=== PATIENT | male | born 1945 | race Two or more races ===

== ENCOUNTER 2018-12-03 10:59 | Inpatient (IN) | payer OTHER ==
[~2018-12-03] VITALS: Ht 172.7 cm; Wt 82.8 kg
[~2018-12-03 10:59] MED LIST: ASPI81CH49 PO; ATOR40TA52 PO; CAR3125T OR; DOCU250C3 PO; DONETAB6 PO; ENAL2.5T PO; FLUO-125 PO; GABA800T97 PO; HCTZ25T PO; INSLANTI SC; INSUPOW SUBCUT; LEVO75TA6 PO; METO25TA5 PO; MORP60TA34 PO; NITR0.4S31 SL; OMEG100078 PO; OMEP20TA44 PO; SPIR25TA8 PO; TRAZ50TA2 PO
[2018-12-03 11:35] LABS: Basophils # (auto) 0.1 uL; Basophils % (auto) 0.7 % (0.0-2.0); Eosinophils # (auto) 0 uL; Eosinophils % (auto) 0.3 % (0.0-7.0); Hematocrit 26.4 % (41.0-53.0); Hemoglobin 9.1 g/dL (13.5-17.5); Lymphocytes % (auto) 17.7 % (10.0-50.0); Mean Corpuscular Hemoglobin 30.3 pg (28.0-32.0); Mean Corpuscular Hgb Conc. 34.3 g/dL (32.0-36.0); Mean Corpuscular Volume 88.4 fL (80.0-100.0); Monocytes # (auto) 1.4 uL; Monocytes % (auto) 12.1 % (0.0-12.0); Neutrophils # (auto) 7.8 uL; Neutrophils % (auto) 69.2 % (37.0-80.0); Platelet Count (auto) 91 10^3/uL (140-450); Red Blood Cells 2.98 10^6/uL (4.5-5.90); Red Cell Distribution Width 14.1 % (11.8-14.3); White Blood Cell 11.2 10^3/uL (4.4-10.8)
[2018-12-03 11:53] LABS: Albumin 2.6 g/dL (3.4-5.0); Calcium 9.5 mg/dL (8.5-10.1); Potassium 4.1 mmol/L (3.5-5.1)
[2018-12-03 11:56] LABS: BUN/Creatinine Ratio 47.9; Bilirubin, Total 0.5 mg/dL (0.2-1.0); Total Protein 6.3 g/dL (6.4-8.2)
[2018-12-03] MEDS ORDERED: SODIUM CHLORIDE 0.9% 1,000 ML IVB ONE (12:38)
[2018-12-03 13:05] LABS: INR 1.23 (0.9-1.15); Partial Thromboplastin Time 28.2 sec (23.78-33.04)
[2018-12-03 13:08] LABS: Magnesium 1.8 mg/dL (1.6-2.6)
[2018-12-03] MEDS ORDERED: NITROGLYCERIN 0.4 MG SL TAB SL PRN (20:00)
[2018-12-03] MEDS ORDERED: MORPHINE SULF INJ 2 MG/ML SYRINGE 1ML IV PRN ×2 (20:00)
[2018-12-03] MEDS ORDERED: ONDANSETRON HCL 4 MG/2 ML VIAL IV PRN (20:00)
[2018-12-03] MEDS ORDERED: DEXTROSE (50%) 50ML SYRG IV PRN (20:00)
[2018-12-03] MEDS ORDERED: VANCOMYCIN PER PHARMACY 0 MG IV SCH (20:00)
[2018-12-03] MEDS ORDERED: PATIENTS OWN MEDICATION (Gabapentin 800 MG) PO SCH (22:00)
[2018-12-03] MEDS ORDERED: PATIENTS OWN MEDICATION (Donepezil Hydrochloride (Donepezil Hcl) 10 MG) PO SCH (22:00)
[2018-12-03] MEDS: InsuLIN REG 1unit/0.01ml Soln (100units/ml) SC SCH (22:28)
[2018-12-03] MEDS: ACCU-CHEK COMFORT CURVE STRIP VI SCH (22:28)
--- NOTE | 2018-12-03 22:56 | NUR ---
Telemetry admit from VERA DUNN Caren admitted to Telemetry unit after no SBAR received. Patient oriented to ROXANNE ARMENDARIZ, RN primary RN, unit, room, bed, and unit policies regarding patient care and visiting hours. Patient now on continuous telemetry monitoring, tele box # [id number] and telemetry reading on arrival to unit is sinus tachycardia at 107 beats oer minute. Patient weighed by bedscale and encouraged to call if they need something. All questions and concerns addressed, patient verbalized understanding. Bed in lowest locked position, side rails up x2, call light within reach, bed alarm on. Patient educated on using call light for staff assistance before getting up or out of bed, patient verbalized understanding. Skin intact, dry scabs noted to left heel under optifoam. Picture taken with wound care camera for reference. Heels floated with pillow, skin cleaned and new optifoam applied. Skin noted to be intact. Will continue to monitor for changes every hour and as needed.
[2018-12-03] MEDS ORDERED: VANCOMYCIN 1GM/250ML 250 ML IV ONE (23:00)
[2018-12-03 23:52] VITALS: BP 98/52
[2018-12-04] MEDS: ACETAMINOPHEN 500 MG TAB PO PRN ×2 (00:47→10:00)
[2018-12-04] MEDS: DOCUSATE SOD 100 MG CAP PO SCH ×3 (00:48→22:24)
[2018-12-04] MEDS: SODIUM CHLORIDE 0.9% 1,000 ML IV SCH ×4 (00:50→22:30)
--- NOTE | 2018-12-04 02:00 | NUR ---
Hospitalist Paged Patient requesting anti-anxiety medication, nothing due at this time. Patient also report 02/26 "stomach ache," requesting Tums. Hospitalist paged, awaiting call back at this time.
--- NOTE | 2018-12-04 02:48 | NUR ---
Hospitalist Returned Page Jose Leos SPORTS MEDICINE TRAINER returned page at this time. New orders received for Tums 500 mg chewable one time dose for patient's stomach discomfort and for Temazepam 15mg PO one time dose for patient's anxiety. All orders read back and verified. Will continue to monitor patient.
[2018-12-04] MEDS ORDERED: CALCIUM CARB 500 MG CHEW TAB PO ONE (03:00)
[2018-12-04] MEDS ORDERED: TEMAZEPAM 15 MG CAP PO ONE (03:00)
[2018-12-04] MEDS: LEVOFLOXACIN 750MG 150 ML IV SCH (03:07)
[2018-12-04 05:04] VITALS: BP 112/53
[2018-12-04] MEDS: GABAPENTIN 400 MG CAP PO SCH ×3 (05:19→22:24)
[2018-12-04] MEDS: FLUoxetine HCL 20 MG CAP PO SCH (05:20)
[2018-12-04] MEDS: LEVOTHYROXINE SODIUM 25 MCG TAB PO SCH (05:20)
[2018-12-04 05:46] LABS: Basophils # (auto) 0.1 uL; Eosinophils # (auto) 0.1 uL; Neutrophils # (auto) 6.9 uL; Platelet Count (auto) 86 10^3/uL (140-450)
[2018-12-04 05:48] LABS: Basophils % (auto) 0.7 % (0.0-2.0); Eosinophils % (auto) 0.6 % (0.0-7.0); Hematocrit 24.1 % (41.0-53.0); Hemoglobin 8.4 g/dL (13.5-17.5); Lymphocytes # (auto) 1.7 uL; Lymphocytes % (auto) 17.2 % (10.0-50.0); Mean Corpuscular Hemoglobin 31.2 pg (28.0-32.0); Mean Corpuscular Hgb Conc. 34.8 g/dL (32.0-36.0); Mean Corpuscular Volume 89.8 fL (80.0-100.0); Neutrophils % (auto) 71.5 % (37.0-80.0); Red Blood Cells 2.69 10^6/uL (4.5-5.90); White Blood Cell 9.6 10^3/uL (4.4-10.8)
[2018-12-04 06:07] LABS: % Iron Saturation 18.5 % (20-55)
[2018-12-04 06:13] LABS: Calcium 8.4 mg/dL (8.5-10.1); Potassium 3.7 mmol/L (3.5-5.1)
[2018-12-04 06:14] LABS: Magnesium 1.7 mg/dL (1.6-2.6)
[2018-12-04 06:15] LABS: BUN/Creatinine Ratio 48.6
[2018-12-04 06:57] LABS: Albumin 2.5 g/dL (3.4-5.0); Bilirubin, Direct 0.2 mg/dL (0-0.2)
[2018-12-04 06:59] LABS: Bilirubin, Total 0.5 mg/dL (0.2-1.0); Total Protein 6.4 g/dL (6.4-8.2)
[2018-12-04] MEDS: ACCU-CHEK COMFORT CURVE STRIP VI SCH ×4 (07:00→22:24)
[2018-12-04] MEDS ORDERED: PATIENTS OWN MEDICATION (Fluoxetine Hcl 20 MG) PO SCH (07:00)
--- NOTE | 2018-12-04 07:30 | NUR ---
Opening Shift Note Assumed care of patient, awake and alert. No S/S of distress/SOB or pain. Instructed on POC and to call for assist PRN, will continue to monitor for changes Q1hr and PRN.
[2018-12-04] MEDS: InsuLIN REG 1unit/0.01ml Soln (100units/ml) SC SCH ×4 (07:32→22:23)
--- NOTE | 2018-12-04 07:32 | NUR ---
Closing Note Patient lying in bed, eyes closed, respirations even and unlabored, appears asleep. Patient awakens to name and touch. No s/s of distress. Bed in lowest locked position, side rails up x2, call light within reach, bed alarm on. Care endorsed to dayshift RN.
[2018-12-04 09:00] VITALS: BP 107/56
[2018-12-04] MEDS: PANTOPRAZOLE 40 MG/10 ML VIAL IV SCH (10:00)
[2018-12-04] MEDS: ASPirin 81 mg TAB PO SCH (10:00)
[2018-12-04] MEDS ORDERED: PATIENTS OWN MEDICATION (Levothyroxine Sodium 1 TAB) PO SCH (10:00)
[2018-12-04] MEDS: VANCOMYCIN 1GM/250ML 250 ML IV SCH ×2 (11:34→22:22)
[2018-12-04 13:00] VITALS: BP 99/50
[2018-12-04] MEDS ORDERED: DEXTROSE (50%) 50ML SYRG IV PRN (16:15)
[2018-12-04 16:52] VITALS: BP 110/54
[2018-12-04] MEDS: TAMSULOSIN HYDROCHLORIDE 0.4 MG CAP PO SCH (17:27)
[2018-12-04 22:00] VITALS: BP 101/47
[2018-12-04] MEDS: DONEPEZIL HYDROCHLORIDE 5 MG TAB PO SCH (22:25)
[2018-12-05 06:00] VITALS: BP 90/50
[2018-12-05] MEDS: SODIUM CHLORIDE 0.9% 1,000 ML IV SCH ×3 (06:30→22:16)
[2018-12-05] MEDS: GABAPENTIN 400 MG CAP PO SCH ×3 (06:40→21:59)
[2018-12-05] MEDS: LEVOTHYROXINE SODIUM 25 MCG TAB PO SCH (06:41)
[2018-12-05] MEDS: ACCU-CHEK COMFORT CURVE STRIP VI SCH ×4 (06:42→22:15)
[2018-12-05] MEDS: InsuLIN REG 1unit/0.01ml Soln (100units/ml) SC SCH ×4 (06:42→22:02)
[2018-12-05] MEDS: FLUoxetine HCL 20 MG CAP PO SCH (06:42)
[2018-12-05] MEDS: ACETAMINOPHEN 500 MG TAB PO PRN ×2 (07:05→17:43)
--- NOTE | 2018-12-05 07:55 | NUR ---
Opening Shift Note Assumed care of patient, patient sleeping. No S/S of distress/SOB or pain. Will continue to monitor for changes Q1hr and PRN.
[2018-12-05 08:00] VITALS: BP 105/66
[2018-12-05 08:45] VITALS: BP 105/66
[2018-12-05] MEDS: DOCUSATE SOD 100 MG CAP PO SCH ×2 (10:08→21:59)
[2018-12-05] MEDS: PANTOPRAZOLE 40 MG/10 ML VIAL IV SCH (10:08)
[2018-12-05] MEDS: ASPirin 81 mg TAB PO SCH (10:08)
[2018-12-05 10:13] LABS: Albumin 2.2 g/dL (3.4-5.0); BUN/Creatinine Ratio 25.7; Calcium 7.6 mg/dL (8.5-10.1); Potassium 3.4 mmol/L (3.5-5.1)
[2018-12-05 10:16] LABS: Bilirubin, Total 0.4 mg/dL (0.2-1.0); Total Protein 5.9 g/dL (6.4-8.2)
[2018-12-05] MEDS: HYDROcodone-ACET 5/325MG TAB PO PRN ×2 (10:19→21:59)
--- NOTE | 2018-12-05 11:38 | NUR ---
assessment Per ss consult patient has had multiple falls at home, overwhelmed. 2nd ss consult unable to care for patient at home. I have left a message for patients Tesas. Waiting for return call now. Addendum: 12/07/18 at 1141 by Elisa Alva Amended: Links added.
[2018-12-05] MEDS: VANCOMYCIN 1GM/250ML 250 ML IV SCH (11:48)
[2018-12-05 12:59] VITALS: BP 90/45
[2018-12-05 17:00] VITALS: BP 101/50
[2018-12-05] MEDS: TAMSULOSIN HYDROCHLORIDE 0.4 MG CAP PO SCH (17:26)
--- NOTE | 2018-12-05 17:52 | NUR ---
IV insertion IV access obtained, via clean sterile technique by inserting 22 gauge catheter at right wrist after 1 attempt. IV secured properly. No trauma to site. Patient tolerated well.
--- NOTE | 2018-12-05 17:54 | NUR ---
IV removal IV DC'd from left forearm with clean sterile technique, catheter fully intact. Pressure dressing applied to site. Patient tolerated well.
--- NOTE | 2018-12-05 18:56 | NUR ---
END OF SHIFT PATIENT RESTING IN BED, NO S/S OF DISTRESS NOTED. INSTRUCTED PATIENT TO CALL PRN. BED IN LOWEST LOCKED POSITION, CALL LIGHT WITHIN REACH. ENDORSED CARE TO FRANKLIN MILLER.
--- NOTE | 2018-12-05 19:30 | NUR ---
Opening Shift Note Assumed care of patient, awake and alert x4. No S/S of distress/SOB or pain. Patient gets easily agitated and demands things at times. IV patent to right wrist. Instructed on POC and to call for assist PRN, will continue to monitor for changes Q1hr and PRN.
[2018-12-05] MEDS ORDERED: TEMAZEPAM 15 MG CAP PO PRN (21:00)
--- NOTE | 2018-12-05 21:00 | NUR ---
Patient requesting a sleeping pill. Called Dr. Bennett's call center and spoke with Dr. Hewitt. New orders carried out.
[2018-12-05] MEDS: DONEPEZIL HYDROCHLORIDE 5 MG TAB PO SCH (21:59)
[2018-12-05 22:00] VITALS: BP 100/47
[2018-12-05] MEDS: LEVOFLOXACIN 750MG 150 ML IV SCH ×2 (22:02)
[2018-12-06 05:00] VITALS: BP 105/56
[2018-12-06] MEDS: LEVOTHYROXINE SODIUM 25 MCG TAB PO SCH (06:09)
[2018-12-06] MEDS: GABAPENTIN 400 MG CAP PO SCH ×2 (06:09→13:28)
[2018-12-06] MEDS: InsuLIN REG 1unit/0.01ml Soln (100units/ml) SC SCH ×3 (06:10→17:00)
[2018-12-06] MEDS: ACCU-CHEK COMFORT CURVE STRIP VI SCH ×3 (06:10→17:00)
[2018-12-06] MEDS: FLUoxetine HCL 20 MG CAP PO SCH (06:10)
[2018-12-06] MEDS: SODIUM CHLORIDE 0.9% 1,000 ML IV SCH ×2 (06:10→14:02)
[2018-12-06] MEDS: ACETAMINOPHEN 500 MG TAB PO PRN (06:11)
--- NOTE | 2018-12-06 07:44 | NUR ---
Opening Shift Note Assumed care of patient, awake, alert, and oriented x4. Patient has IV in right wrist 22g running NS at 125mL/hr, patient tolerating well. Patient is on room air with no S/S of distress/SOB. Patient has optifoam to sacrum for preventative measures. Instructed on POC and to call for assist PRN, will continue to monitor for changes Q1hr and PRN. Bed in lowest locked position, call light within reach.
[2018-12-06 08:00] VITALS: BP 107/50
--- NOTE | 2018-12-06 08:57 | NUR ---
ORDER AND CLINICALS FAXED TO [facility] REQUESTING SNF PLACEMENT.
[2018-12-06 09:00] VITALS: BP 107/50
[2018-12-06] MEDS: PANTOPRAZOLE 40 MG/10 ML VIAL IV SCH (09:09)
[2018-12-06] MEDS: DOCUSATE SOD 100 MG CAP PO SCH (09:09)
[2018-12-06] MEDS: ASPirin 81 mg TAB PO SCH (09:09)
[2018-12-06] MEDS: HYDROcodone-ACET 5/325MG TAB PO PRN (10:41)
[2018-12-06 12:02] VITALS: BP 96/54
--- NOTE | 2018-12-06 12:06 | NUR ---
AT BEDSIDE DR. LAY AT BEDSIDE. PATIENT REQUESTING ANXIETY MEDICATION. PER MD, PATIENT TO GET XANAX 0.5 PO TID PRN FOR ANXIETY. ORDERS READ BACK AND VERIFIED.
[2018-12-06] MEDS: ALPRAZolam 0.5 MG TAB PO PRN ×2 (12:24→16:58)
[2018-12-06 12:41] VITALS: BP 96/54
--- NOTE | 2018-12-06 13:26 | NUR ---
PATIENT'S REQUESTING PATIENT TO GO TO [facility] IN [place] UPON DISCHARGE IF POSSIBLE. MESSAGE LEFT WITH CIRO, CASE MANAGEMENT. WAITING FOR CALL BACK.
--- NOTE | 2018-12-06 14:22 | NUR ---
PATIENT HAS BEEN ACCEPTED AT [facility] ROOM 514 BED 2. PHONE NUMBER [phone]. AUTH FOR [facility] IS
--- NOTE | 2018-12-06 14:34 | NUR ---
[facility] WILL TRANSPORT PATIENT AT 1700 TO [facility]. AUTH IS [id number]
--- NOTE | 2018-12-06 15:00 | NUR ---
AND REPORT , MARILYN, MADE AWARE OF PATIENT GOING TO [facility], ROOM 514, BED 2. REPORT GIVEN TO FRANKLIN PLUMMER AT [facility] FOR CONTINUATION OF CARE.
--- NOTE | 2018-12-06 15:40 | NUR ---
re-assessment Per consult SNF placement. Laurita social media sr strategy manager working on SNF. Addendum: 12/07/18 at 1141 by Elisa Alva Amended: Links added.
[2018-12-06 16:50] VITALS: BP 109/54
--- NOTE | 2018-12-06 17:02 | NUR ---
DISCHARGE Discharge instructions given as ordered. Encourage to follow up with PMD as instructed. All questions and concerns addressed. Patient verbalized understanding. Medication reconciliation form completed and copy given to patient. IV removed with catheter intact, pressure dressing applied. Telemetry unit returned to ICU. Patient taken to vehicle via gurney with all personal belongings, accompanied by [facility] staff. No distress noted at time of departure.
== END 2018-12-06 17:00 | DRG 638 ==
LOC: ER 10:59 → EDUNIT# 10:59 → EDBD 10:59 → TELE 19:55 → TELE-WESTW 22:55
PROVIDERS: ADMIT Nurse Practitioner Acute Care; ATTEND Internal Medicine
DX: E11.65 Type 2 diabetes mellitus with hyperglycemia (principal); I50.42 Chronic combined systolic (congestive) and diastolic (congestive) heart failure; E44.0 Moderate protein-calorie malnutrition; I13.0 Hypertensive heart and chronic kidney disease with heart failure and stage 1 through stage 4 chronic kidney disease, or unspecified chronic kidney disease; R55 Syncope and collapse; I25.10 Atherosclerotic heart disease of native coronary artery without angina pectoris; E03.9 Hypothyroidism, unspecified; E78.5 Hyperlipidemia, unspecified; G89.4 Chronic pain syndrome; J32.0 Chronic maxillary sinusitis; K21.9 Gastro-esophageal reflux disease without esophagitis; R29.6 Repeated falls; E11.42 Type 2 diabetes mellitus with diabetic polyneuropathy; F41.9 Anxiety disorder, unspecified; G47.00 Insomnia, unspecified; N18.9 Chronic kidney disease, unspecified; D50.9 Iron deficiency anemia, unspecified; G30.9 Alzheimer's disease, unspecified; F02.80 Dementia in other diseases classified elsewhere, unspecified severity, without behavioral disturbance, psychotic disturbance, mood disturbance, and anxiety; Z66 Do not resuscitate; I25.2 Old myocardial infarction; Z90.49 Acquired absence of other specified parts of digestive tract; Z95.5 Presence of coronary angioplasty implant and graft; Z79.82 Long term (current) use of aspirin; Z79.899 Other long term (current) drug therapy; Z82.49 Family history of ischemic heart disease and other diseases of the circulatory system; Z83.3 Family history of diabetes mellitus; Z68.27 Body mass index [BMI] 27.0-27.9, adult
CPT/HCPCS: 36415; 70450; 71045; 72125; 80048; 80053; 80061; 80076; 80202; 82962; 83036; 83540; 83550; 83605; 83735; 84443; 84484; 85025; 85610; 85730; 87040; 94761; 96361; 96365; 97163; C9113; G0378; J1815; J1956

== ENCOUNTER 2019-11-26 19:15 | Inpatient (IN) | payer MEDICARE, OTHER ==
[~2019-11-26] VITALS: Ht 175.3 cm; Wt 84.5 kg
[2019-11-26] MEDS ORDERED: SODIUM CHLORIDE 0.9% 500 ML IVB ONE (19:23)
[2019-11-26 20:25] LABS: Basophils # (auto) 0 10 ^3/uL (0-0.2); Eosinophils # (auto) 0.1 10 ^3/uL (0-0.8); Lymphocytes # (auto) 0.3 10 ^3/uL (0.4-5.4); Mean Corpuscular Hemoglobin 18.4 pg (28.0-32.0); Monocytes # (auto) 0.2 10 ^3/uL (0-1.3); White Blood Cell 2.7 10^3/uL (4.4-10.8)
[2019-11-26 20:27] LABS: Basophils % (auto) 0.7 % (0.0-2.0); Hematocrit 20.8 % (41.0-53.0); Lymphocytes % (auto) 12.1 % (10.0-50.0); Mean Corpuscular Hgb Conc. 30.1 g/dL (32.0-36.0); Mean Corpuscular Volume 61.2 fL (80.0-100.0); Monocytes % (auto) 7.2 % (0.0-12.0); Neutrophils # (auto) 2.1 10 ^3/uL (1.6-8.6); Platelet Count (auto) 44 10^3/uL (140-450)
[2019-11-26 20:34] LABS: Albumin 2.5 g/dL (3.4-5.0)
[2019-11-26 20:35] LABS: BUN/Creatinine Ratio 19.6
[2019-11-26 20:38] LABS: Bilirubin, Total 0.3 mg/dL (0.2-1.0); Total Protein 7.6 g/dL (6.4-8.2)
[2019-11-26 20:58] LABS: Hemoglobin 6.3 g/dL (13.5-17.5)
[2019-11-26] MEDS ORDERED: LORazepam 2MG/ML-1ML VIAL IV ONE (21:15)
[2019-11-26] MEDS ORDERED: PANTOPRAZOLE 40 MG/10 ML VIAL INJ IV ONE (23:00)
[2019-11-26] MEDS ORDERED: DEXTROSE (50%) 50ML SYRG IV PRN (23:00)
[2019-11-26] MEDS ORDERED: ONDANSETRON HCL 4 MG/2 ML VIAL IV PRN (23:00)
[2019-11-26] MEDS ORDERED: hydrALAZINE HCL 20 MG/ML VL IV PRN (23:00)
[2019-11-26] MEDS ORDERED: NITROGLYCERIN 0.4 MG SL TAB SL PRN (23:15)
[2019-11-26] MEDS ORDERED: MORPHINE SULF INJ 2 MG/ML SYRINGE 1ML IV PRN (23:15)
[2019-11-27] VITALS (8 sets, daily range): BP systolic 114–131; BP diastolic 56–73
[2019-11-27] MEDS: InsuLIN REG 1unit/0.01ml Soln (100units/ml) SC SCH ×4 (00:08→17:58)
[2019-11-27] MEDS: ACCU-CHEK COMFORT CURVE STRIP VI SCH ×4 (00:09→17:54)
--- NOTE | 2019-11-27 01:15 | NUR ---
tele admit from ED. pt arrive via stretcher, awake and alert x3. alert to self, and reason for visit and location. this nurse oriented pt on date. pt also oriented to this nurse, his room and use of call light. pt bed locked, low and 2x rails up. pt given urinal, and encouraged by this nurse to call as needed for assistance for toileting needs. pt updated on plan of care, no questions at this time. pt bed alarm activated. this nurse to round q1hr and prn.
--- NOTE | 2019-11-27 01:50 | NUR ---
ROUNDS 15min post infusion begin. upon entering room pt eyes are closed, breathing is even and unlabored. pt is awake when this nurse takes vitals. no complaints at this time. vitals wnl. call light in reach, this nurse to continue monitoring.
[2019-11-27] MEDS ORDERED: ACETAMINOPHEN 325 MG TAB PO ONE (06:30)
[2019-11-27 07:17] LABS: Basophils # (auto) 0 10 ^3/uL (0-0.2); Eosinophils # (auto) 0 10 ^3/uL (0-0.8); Hematocrit 24.3 % (41.0-53.0); Hemoglobin 7.5 g/dL (13.5-17.5); Lymphocytes # (auto) 0.5 10 ^3/uL (0.4-5.4); Monocytes # (auto) 0.2 10 ^3/uL (0-1.3); Platelet Count (auto) 45 10^3/uL (140-450)
[2019-11-27 07:19] LABS: Basophils % (auto) 0.6 % (0.0-2.0); Eosinophils % (auto) 0.5 % (0.0-7.0); Lymphocytes % (auto) 13.1 % (10.0-50.0); Mean Corpuscular Hemoglobin 19.7 pg (28.0-32.0); Mean Corpuscular Hgb Conc. 30.7 g/dL (32.0-36.0); Mean Corpuscular Volume 64.2 fL (80.0-100.0); Monocytes % (auto) 6.8 % (0.0-12.0); Neutrophils # (auto) 2.7 10 ^3/uL (1.6-8.6); Nucleated Red Blood Cells % 0.1 %; Red Blood Cells 3.78 10^6/uL (4.5-5.90); White Blood Cell 3.5 10^3/uL (4.4-10.8)
[2019-11-27 07:38] LABS: Albumin 2.7 g/dL (3.4-5.0); BUN/Creatinine Ratio 7.9; Calcium 8.2 mg/dL (8.5-10.1); Potassium 3.6 mmol/L (3.5-5.1)
[2019-11-27 07:47] LABS: Bilirubin, Total 1.1 mg/dL (0.2-1.0); Total Protein 7.6 g/dL (6.4-8.2)
--- NOTE | 2019-11-27 08:29 | NUR ---
[facility] CALL FOR[facility] CRIMINAL INVESTIGATIVE AGENT. PER MARCOS PATIENT IS CURRENTLY ON THEIR SERVICE AND NEED TO CALL WHEN PLAN OF DISCHARGE IS IN PLACE SO THEY CAN ARRANGE TRANSPORTATION AND RESUME CARE.
[2019-11-27] MEDS: PANTOPRAZOLE 40 MG/10 ML VIAL INJ IV SCH ×2 (10:11→22:30)
--- NOTE | 2019-11-27 11:08 | NUR ---
WOUND CARE NOTE: Wound care in to see patient per wound care request regarding "sacral wound" that are noted present on admission. Bedside nurse took photograph of patient's wounds/skin issue upon admission for reference. Patient is 74 years old male with admitting diagnosis of GI Bleed. Patient with history of DM, CVA, Dementia. Patient is resting in bed in Rm. 272B. Patient is awake, alert and able to verbalize needs. Patient reports of pain, bedside nurse is paging the doctor for order. Patient is able to assist in turning and repositioning. His Leif score is 14. Skin/wound assessment done with the assistance of patient's nurse, FRANKLIN Martin. Patient's sacrum noted with dark red non-blanchable redness with multi open partial thickness wounds to L upper sacrum (1.5x0.8cm) Rt upper sacrum (0.5x0.5cm) and Rt lower sacrum (0.7x0.7cm). Wounds are red with dark red non-blanchable periwound, no drainage, no odor noted. 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 Nurse assistant manager bilingual reported that patient is incontinent of urine and fecal and states that she just cleaned the patient. Applied Z Guard cream to patient's sacrum and covered with Opti foam sacral dressing. Patient tolerated well, repositioned for comfort facing his Rt side, redistributed pressure points with pillows. Bed in low position, call griffin on hand, bed alarm on. RECOMMENDATION: Nursing to continue with BID/PRN cleaning and application of Z Guard cream to sacral,buttocks per MD order, Dietary consult, frequent turning and repositioning schedule as condition permits,redistribute pressure points with pillows, air mattress (ordered), elevate heels on pillows, frequent daisha check/care, keep clean and dry,continue monitoring by wound care while patient is hospitalized. Addendum: 11/27/19 at 1441 by Tamara Flores RN Amended: Links added.
--- NOTE | 2019-11-27 11:09 | NUR ---
WOUND CONSULT MAKE READY MECHANIC, YANG AT BED SIDE ASSESSING PATIENT NEW PHOTOS TAKEN
--- NOTE | 2019-11-27 11:48 | NUR ---
AT BED SIDE
--- NOTE | 2019-11-27 12:00 | NUR ---
C-DIFF TOX ORDER COLLECTED STOOL SAMPLE, HOWEVER UNABLE TO TEST FOR C DIFF DUE TO NOT MEETING CRITERIA.
--- NOTE | 2019-11-27 12:00 | NUR ---
1200 INSULIN HELD PATIENT NPO PATIENTS AT BEDSIDE WILL CONTINUE TO MONITOR
--- NOTE | 2019-11-27 12:57 | NUR ---
AIR MATTRESS: Air mattress ordered at [facility],Reference # [id number]; ETA 11/27/19 @1850, Call [facility] if need to follow up at [phone] Addendum: 11/27/19 at 1257 by Tamara Flores RN Amended: Links added.
--- NOTE | 2019-11-27 14:30 | NUR ---
CONSULTATION/JYOTI MONTES AT BED SIDE DISCUSSING POC WITH PATIENT. PATIENT VERBALIZES UNDERSTANDING. NEW ORDERS RECEIVED. READ BACK AND VERIFIED. WILL IMPLEMENT.
[2019-11-27] MEDS ORDERED: LORazepam 0.5 MG TAB PO ONE (14:45)
[2019-11-27] MEDS: levoFLOXacin 500MG 100 ML IV SCH (15:06)
[2019-11-27] MEDS: metroNIDAZOLE 500 MG TAB PO SCH ×2 (15:07→22:28)
[2019-11-27] MEDS: ACETAMINOPHEN 325 MG TAB PO PRN (15:08)
[2019-11-27 15:25] LABS: Basophils # (auto) 0 10 ^3/uL (0-0.2); Eosinophils # (auto) 0 10 ^3/uL (0-0.8); Hemoglobin 7.7 g/dL (13.5-17.5); Monocytes # (auto) 0.3 10 ^3/uL (0-1.3); Nucleated Red Blood Cells % 0.1 %; Platelet Count (auto) 46 10^3/uL (140-450); White Blood Cell 3.7 10^3/uL (4.4-10.8)
[2019-11-27 15:27] LABS: Basophils % (auto) 0.7 % (0.0-2.0); Eosinophils % (auto) 0.3 % (0.0-7.0); Hematocrit 24.8 % (41.0-53.0); Lymphocytes # (auto) 0.6 10 ^3/uL (0.4-5.4); Lymphocytes % (auto) 15.4 % (10.0-50.0); Mean Corpuscular Hemoglobin 19.6 pg (28.0-32.0); Mean Corpuscular Volume 63.3 fL (80.0-100.0); Neutrophils # (auto) 2.8 10 ^3/uL (1.6-8.6); Neutrophils % (auto) 76.6 % (37.0-80.0); Red Blood Cells 3.92 10^6/uL (4.5-5.90)
[2019-11-27 15:33] LABS: Red Cell Distribution Width 21.2 % (11.8-14.3)
--- NOTE | 2019-11-27 15:35 | NUR ---
EMERGENCY CONTACT/PASSWORD MARILYN GREGORY () [phone] PW: "DOUG"
--- NOTE | 2019-11-27 15:51 | NUR ---
MICRO/MRSA POSITIVE MRSA RESULTS. ISOLATION PRECAUTIONS IN PLACE
--- NOTE | 2019-11-27 17:30 | NUR ---
DR LAY AT BED SIDE, DISCUSSING POC WITH PATIENT AND . PATIENT AND VERBALIZE UNDERSTANDING.
--- NOTE | 2019-11-27 20:08 | NUR ---
OPEN NOTE assumed care of pt. upon etnering room pt is contact iso for positive mrsa nares. pt on 2Lnc no distress noted. pt denies and pain at this time. pt updated on plan of care, all concerns addressed to this point. pt bed locked, low and 2xrails up. pt is alert and oriented x3, this nurse oriented pt on the date today. pt IV in right AC leaking, this nurse dc'd without issue. after two failed attempts at acquiring new iv site, pt refused. this nurse will attempt new iv placement later in shift. call light in reach. this nurse to round q1hr and prn.
--- NOTE | 2019-11-27 20:29 | NUR ---
paged dr villagomez in regards to pt home meds and his desire to be restarted on them whilst inpatient. was connected with [employer] service. left message, awaiting call back.
--- NOTE | 2019-11-27 22:12 | NUR ---
[facility] after performing daisha care and replacing optifoam on sacrum. pt continues to refuse new IV placement "later". Addendum: 11/28/19 at 0037 by SIDNEY LOU RN RN pt had large liquid, mucus consistency bm. sample sent for geovanni martel
[2019-11-27] MEDS: DONEPEZIL HYDROCHLORIDE 5 MG TAB PO SCH (22:27)
[2019-11-27] MEDS: traZODone HCL 50 MG TAB PO SCH (22:28)
[2019-11-27] MEDS: ATORVASTATIN 20 MG TAB PO SCH (22:28)
[2019-11-27] MEDS: GABAPENTIN 400 MG CAP PO SCH (22:28)
[2019-11-28] MEDS: InsuLIN REG 1unit/0.01ml Soln (100units/ml) SC SCH ×4 (00:30→18:00)
[2019-11-28] MEDS: ACCU-CHEK COMFORT CURVE STRIP VI SCH ×4 (00:30→17:33)
--- NOTE | 2019-11-28 00:38 | NUR ---
pt had large green, mucus consistency bm. bed bath performed. full linen change, gown change. new optifoam placed. pt tolerated well.
--- NOTE | 2019-11-28 00:39 | NUR ---
pt refused iv placement, this nurse explained risks associated with lack of IV. pt stated "later, let me sleep". call light in reach.
[2019-11-28 05:00] VITALS: BP 131/81
[2019-11-28 06:26] LABS: Basophils # (auto) 0 10 ^3/uL (0-0.2); Eosinophils # (auto) 0 10 ^3/uL (0-0.8); Lymphocytes # (auto) 0.6 10 ^3/uL (0.4-5.4); Mean Corpuscular Hgb Conc. 30.7 g/dL (32.0-36.0); Monocytes # (auto) 0.3 10 ^3/uL (0-1.3); Neutrophils # (auto) 2.3 10 ^3/uL (1.6-8.6); White Blood Cell 3.3 10^3/uL (4.4-10.8)
[2019-11-28] MEDS: metroNIDAZOLE 500 MG TAB PO SCH ×3 (06:27→22:50)
[2019-11-28] MEDS: GABAPENTIN 400 MG CAP PO SCH ×3 (06:27→22:48)
[2019-11-28 06:28] LABS: Basophils % (auto) 0.8 % (0.0-2.0); Hematocrit 26.2 % (41.0-53.0); Lymphocytes % (auto) 19.1 % (10.0-50.0); Mean Corpuscular Hemoglobin 19.6 pg (28.0-32.0); Mean Corpuscular Volume 63.9 fL (80.0-100.0); Monocytes % (auto) 10.1 % (0.0-12.0); Nucleated Red Blood Cells % 0.2 %; Platelet Count (auto) 43 10^3/uL (140-450)
[2019-11-28 06:39] LABS: Red Cell Distribution Width 20.6 % (11.8-14.3)
[2019-11-28 06:44] LABS: BUN/Creatinine Ratio 7.2; Calcium 8.4 mg/dL (8.5-10.1); Magnesium 1.8 mg/dL (1.6-2.6); Potassium 3.5 mmol/L (3.5-5.1)
[2019-11-28 06:46] LABS: % Iron Saturation 3.3 % (20-55)
--- NOTE | 2019-11-28 08:04 | NUR ---
OPENING SHIFT NOTE assumed care of pt. pt on 2Lnc no distress noted. pt denies and pain at this time. pt updated on plan of care, all concerns addressed to this point. pt bed locked, low and 2xrails up. pt is alert and oriented x3, this nurse oriented pt on the date todaycall light in reach. this nurse to round q1hr and prn.
[2019-11-28 08:37] LABS: Ferritin 34.5 ng/mL (10-322); Folate (Folic Acid) 14.75 ng/mL (5.38-24)
[2019-11-28 09:00] VITALS: BP 140/65
--- NOTE | 2019-11-28 09:35 | NUR ---
pt had large green, mucus consistency bm. full linen change, gown change. new optifoam placed. pt tolerated well
[2019-11-28] MEDS ORDERED: ENOXAPARIN SOD 30 MG/0.3 ML SYRINGE SC SCH (10:00)
[2019-11-28] MEDS: levoFLOXacin 500MG 100 ML IV SCH (10:06)
[2019-11-28] MEDS: FLUoxetine HCL 20 MG CAP PO SCH (10:06)
[2019-11-28] MEDS: PANTOPRAZOLE 40 MG/10 ML VIAL INJ IV SCH ×2 (10:06→22:00)
[2019-11-28] MEDS: ACETAMINOPHEN 325 MG TAB PO PRN ×2 (11:00→20:57)
--- NOTE | 2019-11-28 11:00 | NUR ---
pt complaining of headache with pain 11/26. pt requesting tylenol. will medicate per EMAR
--- NOTE | 2019-11-28 11:11 | NUR ---
ROUNDING MD LAY AT BEDSIDE. ALL QUESTIONS AND CONCERNS ADDRESSED AT THIS TIME.
[2019-11-28] MEDS ORDERED: IRON SUCROSE COMPLEX 200 MG in SODIUM CHL 0.9% 100 ML IV SCH (12:00)
[2019-11-28] MEDS ORDERED: SODIUM FERR GLUC 125 MG in NS 100 ML IV SCH (12:00)
--- NOTE | 2019-11-28 12:00 | NUR ---
PT SLEEPING AND REFUSED BOTH BREAKFAST AND LUNCH INSULIN HELD UNTIL PATIENT EATS
[2019-11-28 13:00] VITALS: BP 131/57
--- NOTE | 2019-11-28 14:24 | NUR ---
Nutrition Assessment Notes Please refer to link for full assessment notes. Est energy needs: 6069-7565 kcals (23-25 kcal/kgBW) Est protein needs: 79-87 gms/day (1.0-1.1 gm/kgBW) d/t age Will continue to monitor and reassess prn. Addendum: 11/28/19 at [address] Amended: Links added.
--- NOTE | 2019-11-28 15:50 | NUR ---
PT COMPLAINING OF 7/10 PAIN TO THE NECK AND HEAD. PT STATES "THE TYLENOL DID NOT LAST LONG ENOUGH AND WILL NEED SOMETHING ELSE" FOR PAIN MANAGEMENT. THIS RN GAVE PATIENT ICE AND HEAT PACKS AND PT STATES "THESE ARE NOT WORKING PLEASE GET ME SOMETHING STRONGER FOR PAIN
--- NOTE | 2019-11-28 15:51 | NUR ---
LISA LAY RE: PT HEADACHE AND NECK PAIN 03/28. AWAITING CALL BACK
[2019-11-28 17:00] VITALS: BP 115/61
--- NOTE | 2019-11-28 17:53 | NUR ---
PT REFUSING TO EAT AT THIS TIME PT EDUCATED ABOUT DIABETES AND FOOD. PT VERBALIZED UNDERSTANDING, REINFORCEMENT NEEDED
[2019-11-28] MEDS: HYDROcodone-ACET 5/325MG TAB PO PRN (17:56)
--- NOTE | 2019-11-28 18:03 | NUR ---
1800 INSULIN HELD PT REFUSING TO EAT AT THIS TIME.
--- NOTE | 2019-11-28 19:20 | NUR ---
Opening Shift Note Received shift report from Cj RN,. Assumed care of patient, awake and alert. No S/S of distress/SOB or pain. Instructed on POC and to call for assist PRN, will continue to monitor for changes Q1hr and PRN. Bed in lowest locked position, side rail sup x2. Call light within reach. Continuing to monitor
[2019-11-28 20:00] VITALS: BP 121/71
[2019-11-28 22:00] VITALS: BP 121/71
[2019-11-28] MEDS: DONEPEZIL HYDROCHLORIDE 5 MG TAB PO SCH (22:48)
[2019-11-28] MEDS: traZODone HCL 50 MG TAB PO SCH (22:49)
[2019-11-28] MEDS: ATORVASTATIN 20 MG TAB PO SCH (22:49)
[2019-11-29] MEDS: ACCU-CHEK COMFORT CURVE STRIP VI SCH ×4 (00:17→17:30)
[2019-11-29] MEDS: InsuLIN REG 1unit/0.01ml Soln (100units/ml) SC SCH ×4 (00:17→17:30)
[2019-11-29] MEDS: HYDROcodone-ACET 5/325MG TAB PO PRN ×3 (03:15→18:06)
[2019-11-29 05:00] VITALS: BP 113/68
--- NOTE | 2019-11-29 06:12 | NUR ---
REPORT GIVEN TO MALISSA REID
[2019-11-29] MEDS: GABAPENTIN 400 MG CAP PO SCH ×3 (06:36→22:24)
[2019-11-29] MEDS: metroNIDAZOLE 500 MG TAB PO SCH ×3 (06:37→22:25)
[2019-11-29 08:34] LABS: Hepatitis B Surface Antibody Negative
[2019-11-29 09:00] VITALS: BP 114/60
[2019-11-29 09:11] LABS: Hepatitis A Total Antibody Positive
--- NOTE | 2019-11-29 10:14 | NUR ---
ROUNDING MD LAY AT BEDSIDE. ALL QUESTIONS AND CONCERNS ADDRESSED AT THIS TIME.
[2019-11-29] MEDS: PANTOPRAZOLE 40 MG/10 ML VIAL INJ IV SCH ×2 (10:15→22:25)
[2019-11-29] MEDS: levoFLOXacin 500MG 100 ML IV SCH (10:15)
[2019-11-29] MEDS: FLUoxetine HCL 20 MG CAP PO SCH (10:15)
--- NOTE | 2019-11-29 10:23 | NUR ---
[facility] CONTACT PER COMMUNITY RELATIONS REP JILL THE HOSPICE COMPANY WILL PROVIDE TRANSPORTATION. HOSPICE UPDATED ON DISCHARGE
[2019-11-29 11:07] LABS: Hepatitis B Core Total AB Negative; Hepatitis B Surface Antigen Negative (Negative); Hepatitis C Antibody Negative (Negative)
--- NOTE | 2019-11-29 11:15 | NUR ---
HOSPICE FACILITY ACCORDING TO , SHE IS UNABLE TO FULLY CARE FOR THE PATIENT AT HOME ANY LONGER AND IS NOW REQUESTING PATIENT GO TO HOSPICE FACILITY SO THAT HE MAY BE PROPERLY TAKEN CARE OF. MD LAY UPDATED AND SPEAKING TO ABOUT SITUATION.
--- NOTE | 2019-11-29 11:32 | NUR ---
[facility] FURNACE OPERATOR JILL UPDATED ON CURRENT SITUATION. ACCORDING TO JILL "I WILL SEND THIS MESSAGE ON TO THE SORT OPERATIONS SUPERVISOR BELLE AND SHE WILL BE IN CONTACT WITH THE TO SET SOMETHING UP .
--- NOTE | 2019-11-29 11:45 | NUR ---
TRANSPORT COVERAGE ACCORDING TO JILL FROM [facility] "WE WILL NOT COVER OR SET UP TRANSPORT FOR THE PATIENT BECAUSE HE DID NOT GO TO THE HOSPITAL FROM [facility], SO HIS INSURANCE WILL HAVE TO COVER IT."
[2019-11-29] MEDS: IRON SUCROSE COMPLEX 200 MG in SODIUM CHL 0.9% 100 ML IV SCH (12:50)
[2019-11-29 13:00] VITALS: BP 114/59
--- NOTE | 2019-11-29 13:45 | NUR ---
CALLED [facility] RE: TRANSPORTATION. [facility] IS TO CALL HOSPICE COMPANY AND VERIFY INFORMATION AND POSSIBLE TRANSPORT INFORMATION
--- NOTE | 2019-11-29 14:31 | NUR ---
assessment Patient is a 74 year old male who lived home with his Tessa prior to admission and was on hospice with [facility] hospice. Per Tessa patient will return home with her on discharge. Per Tessa patient will resume hospice with [facility]. Patient has all DME and 02 at home. Patient has an advanced directive and Tessa is POA. I informed Tessa she has a right to participate in any and all discharge planning. Tessa verbalized understanding and agreed to discharge plan. Addendum: 11/30/19 at 1436 by Elisa IRVING Amended: Links added.
--- NOTE | 2019-11-29 16:11 | NUR ---
D/C Planning Received followed up called from Brenda with [facility]:) advising me they will look for placement for respite care and will follow up once they find placement. Advised Katina to please follow up wit WAN II Elisa regarding placement tomorrow Tuesday.
[2019-11-29 17:00] VITALS: BP 103/49
--- NOTE | 2019-11-29 18:38 | NUR ---
Opening Shift Note Assumed care of patient, awake and alert. No S/S of distress/SOB or pain. Instructed on POC and to call for assist PRN, will continue to monitor for changes Q1hr and PRN. Bed in lowest locked position, side rail sup x2. Call light within reach. Continuing to monitor
--- NOTE | 2019-11-29 19:35 | NUR ---
RECEIVED PATIENT FROM DAY SHIFT RN. PATIENT RESTING IN BED. NO S/S OF DISTRESS NOTED. C/O PAIN @ 5/10 AFTER PAIN MEDICATION EARLIER. REINFORCED PAIN MANAGEMENT SCHEDULE AND WILL COME BACK FOR PAIN MEDICATION LATER WHEN THE TIME IS DUE AND PER PATIENT REQUESTS. REINFORCED PATIENT TIME AND SITUATION. PATIENT VERBALIZED UNDERSTANDING. CLEANED PATIENT FOR BM. TOTAL LINEN AND PATIENT GOWN CHANGED. PATIENT TOLERATED WELL. POC INSTRUCTED AND ENCOURAGED PATIENT TO CALL FOR PACKING SHED SUPERVISOR IF NEEDED. SPECIAL BED IN LOWEST POSITION WILL SIDE RAILS UP X 2. CALL MICHEL WITHIN REACH. ALARM ON. CONTINUE TO MONITOR FOR CHANGES Q1H AND PRN.
[2019-11-29 22:00] VITALS: BP 100/49
[2019-11-29] MEDS: DONEPEZIL HYDROCHLORIDE 5 MG TAB PO SCH (22:24)
[2019-11-29] MEDS: traZODone HCL 50 MG TAB PO SCH (22:25)
[2019-11-29] MEDS: ATORVASTATIN 20 MG TAB PO SCH (22:25)
--- NOTE | 2019-11-29 22:43 | NUR ---
ORAL MEDICATION GIVEN ORDERED. PATIENT SWALLOWED WELL. NO S/S OF ASPIRATION NOTED. REPOSITIONED PATIENT. CONTINUE TO MONITOR.
--- NOTE | 2019-11-29 23:24 | NUR ---
RECEIVED CALL FROM TRANSPORT CENTER, PATIENT STILL W/F PLACEMENT. CONTINUE CARE.
[2019-11-30] MEDS: ACCU-CHEK COMFORT CURVE STRIP VI SCH ×4 (00:33→17:37)
[2019-11-30] MEDS: InsuLIN REG 1unit/0.01ml Soln (100units/ml) SC SCH ×4 (00:34→17:56)
--- NOTE | 2019-11-30 00:47 | NUR ---
ACCU-CHECK, BS 153. INSULIN GIVEN ORDERED. CONTINUE TO MONITOR.
--- NOTE | 2019-11-30 03:49 | NUR ---
PATIENT SLEEPING . NO S/S OF DISTRESS NOTED. REPOSITIONED PATIENT. PATIENT TOLERATED WELL. CONTINUE CARE.
[2019-11-30 05:00] VITALS: BP 125/70
[2019-11-30] MEDS: GABAPENTIN 400 MG CAP PO SCH ×2 (06:17→16:29)
[2019-11-30] MEDS: metroNIDAZOLE 500 MG TAB PO SCH (06:17)
--- NOTE | 2019-11-30 06:18 | NUR ---
ORAL MEDICATION GIVEN ORDERED. PATIENT SWALLOWED WELL. NO S/S OF ASPIRATION NOTED. ACCU-CHECK, BS 126. NO COVERAGE. CONTINUE TO MONITOR.
[2019-11-30 09:00] VITALS: BP 101/55
--- NOTE | 2019-11-30 09:21 | NUR ---
PT Patient refused to be OOB or do PT during morning visit with c/o neck pain despite taking pain medication. FRANKLIN berman notified of patient's refusal. Addendum: 11/30/19 at 0923 by ASHLEY HUTCHISON PTT Amended: Links added.
[2019-11-30] MEDS: PANTOPRAZOLE 40 MG/10 ML VIAL INJ IV SCH (09:59)
[2019-11-30] MEDS: levoFLOXacin 500MG 100 ML IV SCH (09:59)
[2019-11-30] MEDS: FLUoxetine HCL 20 MG CAP PO SCH (09:59)
--- NOTE | 2019-11-30 10:00 | NUR ---
Discharge Received phone call from patient's Tessa. She informed me that the board and care facilities are unable to accommodate the patient at this time due to 'Herrera virus' they are not accepting new patients. Tessa also informed me that she is willing to care for the patient at home. She just need transportation to take him home. corporate planning manager will be notified.
[2019-11-30] MEDS ORDERED: MUPIROCIN 2% OINT 15gm or 22gm EACHNOSTRI SCH (10:45)
[2019-11-30] MEDS: IRON SUCROSE COMPLEX 200 MG in SODIUM CHL 0.9% 100 ML IV SCH (12:00)
[2019-11-30] MEDS: HYDROcodone-ACET 5/325MG TAB PO PRN (12:54)
[2019-11-30 13:03] VITALS: BP 103/57
--- NOTE | 2019-11-30 13:15 | NUR ---
Discharge picture taken. Wound care performed as ordered.
--- NOTE | 2019-11-30 14:36 | NUR ---
re-assessment Per marino consult dc to home with hospice. Per Tessa she is ready for patient to return home. Tessa will bring patient his PJ[employer] for transport. Per Katina at [facility] she is setting up transport and will call me back with ETA. Waiting on ETA now. Tessa verbalized understanding and agreed to discharge plan home on hospice. Addendum: 11/30/19 at 1438 by Elisa IRVING Amended: Links added.
--- NOTE | 2019-11-30 15:12 | NUR ---
re-assessment Per Katina at [facility]. [employer] transport will transport patient home at 7pm today post discharge. Tessa stephenson has been notified as well as Kori REID. Addendum: 11/30/19 at 1514 by Elisa IRVING Amended: Links added.
[2019-11-30 16:43] VITALS: BP 101/56
--- NOTE | 2019-11-30 19:35 | NUR ---
Discharge instructions given as ordered. Encourage to follow up with PMD as instructed. All questions and concerns addressed. Patient verbalized understanding. Medication reconciliation form completed and copy given to patient. IV removed with catheter intact and pressure dressing applied. Telemetry unit returned to ICU. Patient taken to vehicle [facility] with all personal belongings, accompanied by ambulance personnel. No distress noted at time of departure.
== END 2019-11-30 19:35 | disposition hospice, home (50) | DRG 391 ==
LOC: EDBD 19:15 → ER 19:15 → TELE 19:16 → TELE-WESTW 23:36
PROVIDERS: ADMIT Nurse Practitioner; ATTEND Internal Medicine
PROC: 30233N1 Transfusion of Nonautologous Red Blood Cells into Peripheral Vein, Percutaneous Approach (ICD-10-PCS; principal; 2019-11-27)
DX: A08.4 Viral intestinal infection, unspecified (principal); J18.9 Pneumonia, unspecified organism; K92.2 Gastrointestinal hemorrhage, unspecified; E44.0 Moderate protein-calorie malnutrition; D61.818 Other pancytopenia; K76.6 Portal hypertension; J81.1 Chronic pulmonary edema; R19.7 Diarrhea, unspecified; K74.60 Unspecified cirrhosis of liver; D50.0 Iron deficiency anemia secondary to blood loss (chronic); G30.9 Alzheimer's disease, unspecified; N18.9 Chronic kidney disease, unspecified; I25.10 Atherosclerotic heart disease of native coronary artery without angina pectoris; K80.20 Calculus of gallbladder without cholecystitis without obstruction; Z51.5 Encounter for palliative care; K31.89 Other diseases of stomach and duodenum; F02.80 Dementia in other diseases classified elsewhere, unspecified severity, without behavioral disturbance, psychotic disturbance, mood disturbance, and anxiety; I12.9 Hypertensive chronic kidney disease with stage 1 through stage 4 chronic kidney disease, or unspecified chronic kidney disease; E78.5 Hyperlipidemia, unspecified; E11.22 Type 2 diabetes mellitus with diabetic chronic kidney disease; F41.9 Anxiety disorder, unspecified; Z74.01 Bed confinement status; Z68.27 Body mass index [BMI] 27.0-27.9, adult; Z88.1 Allergy status to other antibiotic agents; Z88.8 Allergy status to other drugs, medicaments and biological substances; Z82.49 Family history of ischemic heart disease and other diseases of the circulatory system; Z86.73 Personal history of transient ischemic attack (TIA), and cerebral infarction without residual deficits; Z83.3 Family history of diabetes mellitus; L89.152 Pressure ulcer of sacral region, stage 2
CPT/HCPCS: 36415; 71045; 74176; 80048; 80053; 82105; 82270; 82378; 82607; 82728; 82746; 82962; 83540; 83550; 83690; 83735; 83880; 85025; 86704; 86706; 86708; 86803; 86850; 86900; 86901; 86920; 87045; 87081; 87340; 87427; 87493; 87804; 93005; 96361; 96374; 96375; 97163; C9113; G0378; J1756; J1815; J1956